=== PATIENT | female | born 1985 | race Caucasian/White ===

== ENCOUNTER 2017-05-29 02:07 | Inpatient (IN) | payer MEDICAID, OTHER ==
[2017-05-29] MEDS ORDERED: fentaNYL* 50 MCG/ML 2 ML VIAL (100 MCG VIAL) ONE (07:28)
[2017-05-29 07:34] LABS: Hematocrit 34 % (35-47); Hemoglobin 11.5 g/dl (12.0-16.0); Mean Corpuscular HGB Conc 34 g/dl (31-36); Mean Corpuscular Hemoglobin 31 pg (27-31); Mean Corpuscular Volume 92 fL (80-97); Mean Platelet Volume 10 um3 (7.4-10.4); Red Cell Distribution Width 14 % (10.5-15); White Blood Count 9.8 10^3/ul (3.5-10.8)
[2017-05-29] MEDS ORDERED: Phenylephrine IV* 40 MCG/ML 10 ML SYRINGE IV PUSH PRN (07:40)
[2017-05-29] MEDS ORDERED: Famotidine TAB* 20 MG PO PRN (07:40)
[2017-05-29] MEDS ORDERED: Sodium Citrate/Citric Acid* 15 ML UDC PO PRN (07:40)
[2017-05-29] MEDS ORDERED: EPHEDrine (Pressors)* 50 MG/ML VIAL IV PUSH PRN (07:40)
[2017-05-29] MEDS ORDERED: OBEPIDURAL* 250 ML EPIDURAL SCH (08:00)
[2017-05-29] MEDS ORDERED: oxyCODONE/Acetamin 5/325 MG* TAB PO PRN (09:42)
[2017-05-29] MEDS ORDERED: Witch Hazel PAD* JAR TOPICAL PRN (09:42)
[2017-05-29] MEDS ORDERED: Glycerin ADULT SUPP PR PRN (09:42)
[2017-05-29] MEDS ORDERED: Dibucaine 1% 28.35 GM TUBE PR PRN (09:42)
[2017-05-29] MEDS ORDERED: Acetaminophen TAB* 325 MG PO PRN (09:42)
[2017-05-29] MEDS ORDERED: Ibuprofen TAB* 600 MG PO PRN (09:42)
[2017-05-29] MEDS ORDERED: OXYTOCIN* 10 UNITS/ML 1 ML VIAL IV ONE (09:44)
[2017-05-29] MEDS ORDERED: LACTATED RINGERS IVPB SCH ×2 (10:00)
[2017-05-29] MEDS ORDERED: OXYTOCIN IVPB SCH ×2 (10:00)
[2017-05-29] MEDS ORDERED: OXYTOCIN* 10 UNITS/ML 1 ML VIAL ONE (12:14)
[2017-05-29] MEDS: Docusate CAP* 100 MG PO SCH ×2 (16:16→22:20)
[2017-05-30 06:48] LABS: Hematocrit 34 % (35-47); Hemoglobin 11.2 g/dl (12.0-16.0); Mean Corpuscular HGB Conc 33 g/dl (31-36); Mean Corpuscular Hemoglobin 31 pg (27-31); Mean Corpuscular Volume 94 fL (80-97); Mean Platelet Volume 10 um3 (7.4-10.4); Red Blood Count 3.57 10^6/ul (4.0-5.4); Red Cell Distribution Width 14 % (10.5-15); White Blood Count 8.3 10^3/ul (3.5-10.8)
[2017-05-30 08:21] VITALS: BP 112/73
[2017-05-30] MEDS ORDERED: Ferrous Gluconate TAB* 324 MG TAB PO SCH (09:00)
[2017-05-30] MEDS: Docusate CAP* 100 MG PO SCH (09:28)
== END 2017-05-30 11:07 | disposition home or self-care (01) | DRG 560 ==
LOC: MCHOBOUT 02:07 → MCHOB 06:47
PROVIDERS: ADMIT Nurse Practitioner; ATTEND Midwife
PROC: 10E0XZZ Delivery of Products of Conception, External Approach (ICD-10-PCS; principal; 2017-05-29)
PROC: 4A1HXCZ Monitoring of Products of Conception, Cardiac Rate, External Approach (ICD-10-PCS; 2017-05-29)
DX: O71.82 Other specified trauma to perineum and vulva (principal); Z88.0 Allergy status to penicillin; Z37.0 Single live birth; Z88.1 Allergy status to other antibiotic agents; Z3A.39 39 weeks gestation of pregnancy; Z88.8 Allergy status to other drugs, medicaments and biological substances
CPT/HCPCS: 36415; 85025; 85027; 86850; 86900; 86901; A9270-GY; J2590; J3010

== ENCOUNTER 2018-05-25 20:59 | Emergency (ER) | payer OTHER ==
--- NOTE | 2018-05-25 21:42 | ED ---
- HPI Summary HPI Summary: Patient possibly 5 weeks complains of vaginal spotting, low bilateral intermittent abdominal cramping 2 days. Blood is on pad and on toilet paper when she wipes. Patient has not been evaluated by [employer]ER yet. LMP early April. A1. Denies fever, N/V/D, urinary symptoms, other vaginal symptoms, SOB , peripheral edema, cough, sore throat. Medical history is none. Abdominal/ pelvic surgical history is D+C. - History of Current Complaint Chief Complaint: EDOBProblems Stated Complaint: 5 WEEKS PREG/CRAMPING Time Seen by Provider: 05/25/18 21:26 Hx Obtained From: Patient Chief Complaint: Vaginal Bleeding Onset/Duration: Started Days Ago Timing: Intermittent Severity: Mild Current Severity: None Pain Intensity: 0 Location of Pain: Left Side, Right Side, Suprapubic Character: Cramping Aggravating Factors: Nothing Alleviating Factors: Nothing Associated Signs and Symptoms: Positive: Vaginal Bleeding or Discharge - Assessment SAB: 0 IEA: 1 - Additional Pertinent History Maternal Blood Type and Rh: O Positive - Allergies/Home Medications Allergies/Adverse Reactions: Allergies Allergy/AdvReac Type Severity Reaction Status Date / Time amoxicillin Allergy Nausea And Verified 05/25/18 21:09 Vomiting Penicillins Allergy Nausea And Verified 05/25/18 21:09 Vomiting PMH/Surg Hx/FS Hx/Imm Hx Endocrine/Hematology History: Denies: Hx Anticoagulant Therapy Cardiovascular History: Denies: Hx Cardiac Arrest History: Denies: Hx Dialysis Neurological History: Denies: Hx CVA Psychiatric History: Reports: Hx Anxiety, Hx Depression Infectious Disease History: No Infectious Disease History: Denies: Traveled Outside the [place] in Last 30 Days - Social History Alcohol Use: None Substance Use Type: Reports: None Smoking Status (MU): Former Smoker Review of Systems Constitutional: Negative Eyes: Negative ENT: Negative Cardiovascular: Negative Respiratory: Negative Positive: Abdominal Pain Positive: other Musculoskeletal: Negative Skin: Negative Neurological: Negative Psychological: Normal All Other Systems Reviewed And Are Negative: Yes Physical Exam - Summary Physical Exam Summary: Abdomen nontender to palpation in all quadrants. No peripheral edema. - Physical Exam Triage Information Reviewed: Yes Vital Signs Reviewed: Yes Appearance: Positive: Well-Appearing Skin: Positive: Warm Head/Face: Positive: Normal Head/Face Inspection Eyes: Positive: Normal Neck: Positive: Supple Respiratory/Lung Sounds: Positive: Clear to Auscultation Cardiovascular: Positive: Normal Abdomen Description: Positive: Nontender Musculoskeletal: Positive: Normal Neurological: Positive: Normal Psychiatric: Positive: Normal AVPU Assessment: Alert - [place] Coma Scale Eye: 4 - Spontaneous Motor: 6 - Obeys Commands Verbal: 5 - Oriented Coma Scale Total: 15 Diagnostics - Vital Signs Vital Signs Temp Pulse Resp BP Pulse Ox 05/25/18 21:06 98.8 F 72 19 125/70 97 - Laboratory Result Diagrams: 05/25/18 22:02 05/25/18 22:02 Lab Statement: Any lab studies that have been ordered have been reviewed, and results considered in the medical decision making process. - Ultrasound No standard instances Ultrasound Interpretation: No Acute Changes - No free fluid. Ectopic cannot be excluded. No definitive IUP. Ultrasound Interpretation Completed By: Radiologist Course/Dx - Course Course Of Treatment: Patient possibly 5 weeks complains of vaginal spotting, low bilateral intermittent abdominal cramping 2 days. Blood is on pad and on toilet paper when she wipes. Patient has not been evaluated by OB/ [facility] [employer] yet. LMP early April. A1. Denies fever, N/V/D, urinary symptoms, other vaginal symptoms, SOB, peripheral edema, cough, sore throat. Medical history is none. Abdominal/pelvic surgical history is D+C. PE: Abdomen nontender to palpation in all quadrants. No peripheral edema. Vital signs within normal limits. Labs unremarkable. Patient O positive. Ultrasound states ectopic cannot be excluded at this point. Repeat hCG in 2 days. Follow up with [employer] OFFICER. Patient understands and approves of plan. - Diagnoses Provider Diagnoses: Discharge - Sign-Out/Discharge Documenting (check all that apply): Patient Departure - Discharge Plan Condition: Stable Disposition: HOME Patient Education Materials: (ED) Referrals: Shannan Aldrich [Primary Care Provider] - Additional Instructions: You need a repeat hCG in 48 hours. Follow-up with [employer]ERING OFFICER. Return to the ED for any new or worsening symptoms - Billing Disposition and Condition Condition: STABLE Disposition: Home
[2018-05-25 22:16] LABS: ABS Basophils 0.1 10^3/ul (0-0.2); ABS Eosinophils 0.1 10^3/ul (0-0.6); ABS Lymphocytes 2.4 10^3/ul (1.0-4.8); ABS Monocytes 0.5 10^3/ul (0-0.8); ABS Neutrophils 4.1 10^3/ul (1.5-7.7); ABS Nucleated RBC 0 10^3/ul; Eosinophil % 1.7 % (0-6); Hematocrit 37 % (35-47); Hemoglobin 12.8 g/dl (12.0-16.0); Lymphocyte % 33.3 % (25-47); Mean Corpuscular HGB Conc 35 g/dl (31-36); Mean Corpuscular Hemoglobin 32 pg (27-31); Mean Corpuscular Volume 92 fL (80-97); Mean Platelet Volume 8.1 um3 (7.4-10.4); Nucleated Red Blood Cells % 0; Platelet Count 209 10^3/ul (150-450); Red Blood Count 4.05 10^6/ul (4.00-5.40); Red Cell Distribution Width 13 % (10.5-15); White Blood Count 7.2 10^3/ul (3.5-10.8)
[2018-05-25 22:35] LABS: EGFR Non-African American 82.6 (>60)
[2018-05-25 22:36] LABS: Urine Appearance Clear; Urine Blood 3+ (Negative); Urine Color Yellow; Urine Ketones Negative (Negative); Urine Protein Negative (Negative); Urine Red Blood Cell 3+(>10/hpf) (Absent); Urine Specific Gravity 1.019 (1.010-1.030); Urine Urobilinogen Negative (Negative); Urine White Blood Cell Trace(0-5/hpf) (Absent)
[2018-05-26 00:31] VITALS: BP 112/66
--- NOTE | 2018-05-26 07:32 | RAD ---
Indication: Vaginal bleeding, 5 week . Real-time sonography of the pelvis was performed utilizing endovaginal technique. The uterus measures 9.8 x 4.9 x 6.0 cm. Endometrial echo measures up to 1.0 cm. The right ovary measures 3.1 x 2.8 x 3.4 cm. Follicular cyst measuring up to 2.0 cm is noted. The left ovary measures 2.4 x 1.4 x 2.6 cm. Doppler interrogation demonstrates normal flow. No adnexal masses are noted. No free fluid is noted. IMPRESSION: Follicular cyst right ovary. Correlation with quantitative serial hCG is suggested.
== END 2018-05-26 00:30 | disposition home or self-care (01) ==
LOC: ED 20:59
DX: O26.851 Spotting complicating pregnancy, first trimester (principal); R10.84 Generalized abdominal pain; N83.01 Follicular cyst of right ovary; Z3A.01 Less than 8 weeks gestation of pregnancy; F41.9 Anxiety disorder, unspecified; F32.9 Major depressive disorder, single episode, unspecified; Z88.0 Allergy status to penicillin; Z87.891 Personal history of nicotine dependence
CPT/HCPCS: 36415; 76817; 80053; 81003; 81015; 83690; 84702; 85025; 86140; 86900; 86901; 87086; 99282

== ENCOUNTER 2019-06-25 16:24 | Inpatient (IN) | payer OTHER ==
[2019-06-25] MEDS ORDERED: Buffered Lidocaine 1% SYRIN* 1 ML/SYRINGE INTRADERM ONE (17:19)
[2019-06-25] MEDS ORDERED: Lactated Ringers 1000 ML Bag* 1,000 ML IV ONE (17:19)
[2019-06-25] MEDS ORDERED: OBEPIDURAL* 0 ML EPIDURAL ONE (17:24)
[2019-06-25 17:32] LABS: ABS Basophils 0.1 10^3/ul (0-0.2); ABS Monocytes 0.5 10^3/ul (0-0.8); ABS Neutrophils 7.5 10^3/ul (1.5-7.7); Eosinophil % 0.3 %; Hematocrit 35 % (35-47); Hemoglobin 11.5 g/dL (12.0-16.0); Lymphocyte % 19.4 %; Mean Corpuscular HGB Conc 33 g/dL (31-36); Mean Corpuscular Hemoglobin 28 pg (27-31); Mean Corpuscular Volume 84 fL (80-97); Mean Platelet Volume 9.5 fL (7.4-10.4); Platelet Count 224 10^3/uL (150-450); Red Blood Count 4.11 10^6 /uL (3.70-4.87); Red Cell Distribution Width 14 % (10-15); White Blood Count 10.2 10^3/uL (3.5-10.8)
[2019-06-25] MEDS ORDERED: Lactated Ringers 1000 ML Bag* 1,000 ML IV SCH ×2 (18:00→19:00)
[2019-06-25 18:07] LABS: Urine Benzodiazepine Screen None Detected (None Detect); Urine Opiates Screen None Detected (None Detect)
[2019-06-25] MEDS ORDERED: Acetaminophen TAB* 325 MG PO PRN (18:17)
[2019-06-25] MEDS ORDERED: Dibucaine 1% 28.35 GM TUBE PR PRN (18:17)
[2019-06-25] MEDS ORDERED: Ibuprofen TAB* 600 MG PO PRN (18:17)
[2019-06-25] MEDS ORDERED: Witch Hazel PAD* JAR TOPICAL PRN (18:17)
[2019-06-25] MEDS ORDERED: Glycerin ADULT SUPP PR PRN (18:17)
--- NOTE | 2019-06-25 18:31 | HP ---
General Information - Reason for Visit Active labor - General Information Maternal Age: 33 Grav: 6 Para: 3 SAB: 1 IEA: 1 Estimated Due Date: 06/26/19 Determined By: LMP Gestational Age in Weeks/Days: 39 6/7 Maternal Blood Type and Rh: O Positive - Results this Serology/RPR Result: Non-Reactive Rubella Result: Immune HBsAg Result: Negative HIV Result: Negative GBS Culture Result: Negative Past Medical History Delivery History: Hx Complicated Vaginal Delivery - Prior PPH w/ D&C 1st Pertinent Past Medical History: See Records - depression/ anxiety, migraine, Lyme Disease, arthritis Pertinent Past Surgical History: See Records - D&C, wisdom magaly extraction Pertinent Family History: See Records - diabetes - Antepartal Records Antepartal Records: Reviewed, Complicated by: - placenta previa- resolved by 19 weeks Review of Systems Constitutional: Uncomfortable CV Complaint: No Respiratory: Shortness of Breath: No Gastrointestinal: No Nausea/Vomiting, Normal Bowel Movement Genitourinary: No Dysuria, No Bleeding, No Leaking Fluid Musculoskeletal: No Epigastric Pain, Contractions Neurological: No Headache Movement: Normal Exam Allergies/Adverse Reactions: Allergies Penicillins Allergy (Severe, Verified 06/25/19 17:33) Nausea And Vomiting amoxicillin Allergy (Verified 05/25/18 21:09) Nausea And Vomiting T-97.8, P-107, R-20, BP- 122/89, O2- 100% Lab Values - Entire Visit: Laboratory Tests 06/25/19 06/25/19 06/25/19 17:18 17:18 17:22 WBC 10.2 RBC 4.11 Hgb 11.5 L Hct 35 MCV 84 MCH 28 MCHC 33 RDW 14 Plt Count 224 MPV 9.5 Neut % (Auto) 73.9 Lymph % (Auto) 19.4 [place] % (Auto) 5.1 Eos % (Auto) 0.3 Baso % (Auto) 1.3 Absolute Neuts (auto) 7.5 Absolute Lymphs (auto) 2.0 Absolute Monos (auto) 0.5 Absolute Eos (auto) 0.0 Absolute Basos (auto) 0.1 Absolute Nucleated RBC 0.0 Nucleated RBC % 0.0 Urine Opiates Screen None detected Ur Barbiturates Screen None detected Ur Phencyclidine Scrn None detected Ur Amphetamines Screen None detected U Benzodiazepines Scrn None detected Urine Cocaine Screen None detected U Cannabinoids Screen None detected Blood Type O Positive Antibody Screen Negative - Measurements Height: 5 ft 5 in Weight: 87.997 kg Weight in lbs: 194.961420 Body Mass Index (BMI): 32.3 Pre- Weight: 83.915 kg Weight Gained This : 9 lbs and 0 ozs - Exam Breast: Breast Exam Deferred CVA: No CVA Tenderness Extremities: Edema - trace pedal edema Heart: Normal Rhythm/Heart Sounds HEENT: No Significant Findings Lungs: Clear Bilaterally Rectal: Rectal Exam Deferred Reflexes: DTR 2+ Thyroid: No Thyromegaly - Abdominal Exam Abdomen Exam: Non-Tender, Fundal Height Consistent with Dates - Ultrasound/Biophysical Profile Ultrasound Status: Not Done Targeted Exam Findings See L&D Outpatient Visit Provider Note for Findings: N/A Estimated Weight: 7# Cervical Exam: 6cm Effacement: 90% Station: +1 Presenting Part: Vertex Membrane Status: Bulging Bleeding/Discharge: None EFM Findings - External Monitor Findings Baseline Heart Rate: 120 External Monitor Findings: Accelerations Present, No Pattern of Variable or Late Decelerations, Variability Moderate, Baseline Stable Contractions: Regular, Strong, 45-90 Seconds Contraction Frequency: 2-3 minutes Assessment/Plan - Assessment 33 year old at 39 6/7 weeks gestation in active labor, no evidence of acidemia, membranes intact. - Plan Plan: Admit - Anticipate Vaginal Delivery - Date/Time of Admission Date of Admission: 06/25/19 Time of Admission: 17:18
[2019-06-25] MEDS ORDERED: Oxytocin in LR* 20 UNITS/1,000 ML BAG IVPB SCH (19:00)
--- NOTE | 2019-06-25 23:30 | PROCNOTE ---
[facility] OB: Delivery Note - Delivery A Date of : 06/25/19 Time of : 17:47 Elizabeth Sex: Female Weight at : 3.505 kg Score 1 Minute: 8 Score 5 Minutes: 9 Gestational Age in Weeks and Days at Delivery: 39 Weeks and 6 Days Delivery Method: Spontaneous Vaginal Labor: Spontaneous Did Patient attempt ?: N/A, No Previous Amniotic Fluid: Meconium Estimated Blood Loss: 300 Anesthesia/Analgesia: None Delivered By: Chyna Cazares Nursery Level of Nursery: Regular/Bedside - Perineum Perineal Injury: Abrasion Only - Not Repaired Perineal Repair: None - Events Delivery Events of Note: Pitocin Only After Delivery, Precipitous Delivery - Additional Delivery Notes Additional Delivery Notes: Pt arrived on unit in active labor, requested epidural, but progressed rapidly to complete dilation with urge to push. AROM performed to meconium stained fluid. Pt then pushed spontaneously with good effort and rapid descent. came quickly to and the of the head. Shoulders did not follow with gentle traction, pt placed in McRobert's position and dystocia resolved with the next push. Infant to maternal abdomen, dried and stimulated with resulting vigorous cry, HR> 100. After cord pulsation ceased cord clamped x2 and cut by infant's father. Placenta soon delivered, spontaneous and erik , and Pitocin started at 250 cc/ hr. Bleeding was minimal. Inspection of the perineum revealed only a small periurethral abrasion. Pt and infant stable at this time. Anticipate normal course.
[2019-06-26] MEDS ORDERED: Ferrous Gluconate TAB* 324 MG TAB PO SCH (09:00)
[2019-06-26 09:03] LABS: ABS Lymphocytes 1.3 10^3/ul (1.0-4.8); ABS Monocytes 0.3 10^3/ul (0-0.8); ABS Neutrophils 4.5 10^3/ul (1.5-7.7); Eosinophil % 0.6 %; Hematocrit 30 % (35-47); Lymphocyte % 20.5 %; Mean Corpuscular HGB Conc 34 g/dL (31-36); Mean Corpuscular Hemoglobin 29 pg (27-31); Mean Corpuscular Volume 85 fL (80-97); Mean Platelet Volume 9.5 fL (7.4-10.4); Platelet Count 174 10^3/uL (150-450); Red Blood Count 3.46 10^6 /uL (3.70-4.87); Red Cell Distribution Width 15 % (10-15); White Blood Count 6.1 10^3/uL (3.5-10.8)
[2019-06-26] MEDS: Docusate CAP* 100 MG PO SCH ×2 (09:36→13:56)
[2019-06-26 12:36] VITALS: BP 107/67
== END 2019-06-26 19:00 | disposition home or self-care (01) | DRG 560 ==
LOC: MCHOBOUT 16:24 → MCHOB 17:18
PROVIDERS: ADMIT Midwife; ATTEND Midwife
PROC: 10E0XZZ Delivery of Products of Conception, External Approach (ICD-10-PCS; principal; 2019-06-26)
PROC: 10907ZC Drainage of Amniotic Fluid, Therapeutic from Products of Conception, Via Natural or Artificial Opening (ICD-10-PCS; 2019-06-26)
PROC: 4A1HXCZ Monitoring of Products of Conception, Cardiac Rate, External Approach (ICD-10-PCS; 2019-06-26)
DX: O66.0 Obstructed labor due to shoulder dystocia (principal); Z37.0 Single live birth; Z88.0 Allergy status to penicillin; Z88.1 Allergy status to other antibiotic agents; Z3A.39 39 weeks gestation of pregnancy; O77.0 Labor and delivery complicated by meconium in amniotic fluid; O71.82 Other specified trauma to perineum and vulva; O62.3 Precipitate labor
CPT/HCPCS: 36415; 80307; 85025; 86850; 86900; 86901; A9270-GY